=== PATIENT | female | born 1965 | race Two or more races ===

== ENCOUNTER 2017-01-21 20:35 | Emergency (ER) | payer OTHER ==
[~2017-01-21] VITALS: Ht 152.4 cm; Wt 57.3 kg
[2017-01-21] MEDS ORDERED: SODIUM CHLORIDE 0.9% 1,000ML IVBOLUS ONE (21:30)
[2017-01-21] MEDS ORDERED: MORPHINE SULFATE 4 MG/ML, 1ML IVPush PRN (21:30)
[2017-01-21] MEDS ORDERED: ONDANSETRON 2MG/ML, 2ML IVPush ONE (21:30)
[2017-01-21] MEDS ORDERED: MORPHINE SULFATE 4 MG/ML, 1ML ONE (21:32)
[2017-01-21] MEDS ORDERED: ONDANSETRON 2MG/ML, 2ML ONE (21:33)
[2017-01-21 21:35] LABS: HCG UR LOT HCG7030192
[2017-01-21 21:37] LABS: HEMATOCRIT 47.7 % (34.6-47.8); HEMOGLOBIN 15.2 g/dL (11.7-16.4); WHITE BLOOD COUNT 17.5 x10^3/uL (3.4-10)
[2017-01-21] MEDS ORDERED: CELE200C PO (21:39)
[2017-01-21] MEDS ORDERED: AMLO1CAP6 PO (21:39)
[2017-01-21] MEDS ORDERED: HYOS0.1281 SL (21:41)
[2017-01-21 21:47] LABS: PATH.CAST-FLAG NOT PRESENT; SPERM-FLAG NOT PRESENT; SRC-FLAG NOT PRESENT; XTAL-FLAG NOT PRESENT; YLC-FLAG NOT PRESENT
[2017-01-21 21:48] LABS: HCG UR OBC PASS
[2017-01-21 21:50] LABS: BLOOD UREA NITROGEN 17 mg/dL (7-18)
[2017-01-21 21:56] LABS: ASPARTATE AMINO TRANSFERASE 15 U/L (15-37)
[2017-01-21 21:57] LABS: IS PT STATUS REG ER OR PRE ER? YES
[2017-01-21] MEDS ORDERED: OMNIPAQUE 350 MG/ML, 100ML BOTTLE ONE (23:19)
[2017-01-22 00:47] VITALS: BP 118/64
== END 2017-01-22 00:50 | disposition home or self-care (01) ==
LOC: ED 22:56
DX: K29.00 Acute gastritis without bleeding (principal); K52.9 Noninfective gastroenteritis and colitis, unspecified; I10 Essential (primary) hypertension
CPT/HCPCS: 36415; 74177; 76700; 80053; 81001; 81025; 83690; 84484; 85025; 96361; 96374; 96375; 99285; J2405; J7030; Q9967